=== PATIENT | female | born 1970 | race Caucasian/White ===

== ENCOUNTER 2021-07-01 15:19 | Outpatient (CLI) | payer BC, SELFPAY ==
--- NOTE | ~2021-07-01 | MM_ITS ---
EXAMINATION: MM screening angelica BI w cassie HISTORY: Screening mammogram TECHNIQUE: Craniocaudal and mediolateral oblique 3-D tomosynthesis images were obtained and synthetic 2-D images were generated. CAD analysis was submitted and interpreted. COMPARISON: 02/24/2019 BREAST PARENCHYMAL COMPOSITION: There are scattered areas of fibroglandular density. FINDINGS: There is no evidence of suspicious mass, calcification, or architectural distortion to sugg est malignancy in either breast. There has been no suspicious interval change. IMPRESSION: 1. No mammographic evidence of malignancy. 2. Recommend routine screening mammography in one year. BI-RADS Category 1: Negative Reviewed, dictated and finalized at location A. 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
== END 2021-07-01 15:20 | disposition home or self-care (01) ==
LOC: ANHIMG 15:21
PROVIDERS: PCP Family Medicine Adolescent Medicine; Visit Provider Nurse Practitioner
DX: Z12.31 Encounter for screening mammogram for malignant neoplasm of breast (principal)
CPT/HCPCS: 77063; 77067

== ENCOUNTER 2023-11-13 07:14 | Outpatient (CLI) | payer BC, SELFPAY ==
--- NOTE | ~2023-11-13 | DEXA_ITS ---
? Bone Density Report? Name:? GUS KERNS Patient ID:??? [id number] Age:? 53 Sex:? Female Ethnicity:? White Date of : 1970 Indication: postmenopausal; screening for osteoporosis; height loss; Referring Provider: Zita*Arabella Britt Study: Bone densitometry was performed. Exam Date: November 13, 2023 Accession number: [id number] Bone Density: Region? BMD??? T-score? Z-score?? Classification AP Spine(L2, L3, L4)? 1.641??? 5.1?6.0? Normal Femoral Neck (Left)? 1.040??? 1.7? 2.6? Normal Total Hip (Left)? 1.202??? 2.1? 2.7? Normal Femoral Neck (Right)? 0.992??? 1.3? 2.1? Normal Total Hip (Right)? 1.180??? 2.0? 2.5? Normal Femoral Neck Mean? 1.016??? 1.5? 2.4? Normal Total Hip Mean? 1.191??? 2.0? 2.6? Normal World Health Organization criteria for BMD impression classify patients as: Normal (T-score at or above -1.0), Osteopenia (T-score between -1.0 and -2.5), or Osteoporosis (T-score at or below -2.5). 10-year Fracture Risk: FRAX not reported because: ? All T-scores for Spine Total, Hip Total, Femoral Neck at or above -1.0 Clinical Information Provided by Patient: Has used the following medications: Vitamin D Patient maximum height was 67 Menopause Age: 53 No regular weight bearing exercise Drinks caffeinated beverages Onset of menses at age 17 Number of children 2 Impression: The patient has normal bone mass. Discussion: LOW RISK OF FRACTURE; BONE DENSITY IS WELL ABOVE THE MINIMUM DESIRABLE LEVEL AND ABOVE AVERAGE FOR AGE AND SEX AT ALL SKELETAL SITES TESTED. This person's bone density is above expected limits for age and sex. This is rarely clinically significant, but should be pursued if there are significant musculoskeletal complaints. The patient should follow a healthful lifestyle (good nutrition with adequate calcium and vitamin D, and appropriate weight- bearing exercise). Follow-Up: Consider repeating this study in 5 years or sooner if there is some new clinical indication. Reported by: Dr. Scottie Agee on 11/13/2023 11:55:00 AM. VALDEZ
--- NOTE | ~2023-11-13 | MM_ITS ---
EXAMINATION: MM screening angelica BI w cassie HISTORY: Screening TECHNIQUE: Craniocaudal and mediolateral oblique 3-D tomosynthesis images were obtained and synthetic 2-D images were generated. CAD analysis was submitted and interpreted. COMPARISON: 07/01/2021 BREAST PARENCHYMAL COMPOSITION: Not dense: There are scattered areas of fibroglandular density. FINDINGS: There is no evidence of suspicious mass, calcification, or architectural distortion to sugg est malignancy in either breast. There has been no suspicious interval change. IMPRESSION: 1. No mammographic evidence of malignancy. 2. Recommend routine screening mammography in one year. BI-RADS Category 1: Negative Reviewed, dictated and finalized at location A.
== END 2023-11-13 07:15 | disposition home or self-care (01) ==
LOC: CHSIMG 07:19
PROVIDERS: PCP Family Medicine Adolescent Medicine; Visit Provider Nurse Practitioner
DX: Z12.31 Encounter for screening mammogram for malignant neoplasm of breast (principal); Z78.0 Asymptomatic menopausal state
CPT/HCPCS: 77063; 77067; 77080

== ENCOUNTER 2025-08-01 07:14 | Outpatient (CLI) | payer BC, SELFPAY ==
--- NOTE | ~2025-08-01 | MM_ITS ---
EXAMINATION: MM screening angelica BI w cassie HISTORY: Screening. TECHNIQUE: Craniocaudal and mediolateral oblique 3-D tomosynthesis images were obtained and synthetic 2-D images were generated. CAD analysis was submitted and interpreted. COMPARISON: 2023, 2020, and 2018 BREAST PARENCHYMAL COMPOSITION: Not Dense: There are scattered areas of fibroglandular tissue FINDINGS: No suspicious masses are seen. There are some calcifications in the posterior 2-3 o'clock left breast, which are indeterminate on the screening views. No unexplained architectural distortion is seen. There are no skin or nipple abnormalities identified. There is no adenopathy seen on the images submitted. IMPRESSION: Calcifications in the posterior 2-3:00 position are noted. Additional imaging is recommended. BI-RADS 0 - Incomplete - needs additional imaging evaluation Reviewed, dictated and finalized at location C. 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 Additional imaging i s recommended. BI-RADS 0 - Incomplete - needs additional imaging evaluation
--- OUTSIDE RECORDS SUMMARY | 2025-08-01 07:19 | XMS_ITS | Clinical Summary ---
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 Name Role Phone Unavailable Primary Care Provider Unavailabl e Social History Tobacco Use Types Packs/Day Years Used Date Smoking Tobacco: Never Assessed Comments Unknown Sex and Gender Information Value Date Recorded Sex Assigned at Not on file Legal Sex Female 5:41 PM CDT Gender Identity Not on file Sexual Orientation Not on file Plan of Treatment Health Maintenance Due Date Last Done Comments Cervical Cancer Screening Pa p Smear (Age 30 to 64) Every 3 Years 1970 Colorectal Cancer Screening Colonoscopy (10 Years) 1970 Annual Physical 01/09/1975 Hepatitis C 01/09/1990 DTaP, Tdap and Td Vaccines ( 1 - Tdap) 01/09/1991 Hepatitis B Vaccines (1 of 3 - 19+ 3-dose series) 01/09/1991 Cervical Cancer Screening Pa p with HPV Testing (Age 30 to 64) Every 5 Years 01/09/2002 Cervical Cancer Screening with HPV 01/09/2002 Mammogram Screening 2012 Pneumococcal Vaccine: 50+ Ye ars (1 of 1 - PCV) 01/09/2022 Zoster Vaccines (1 of 2) 01/09/2022 COVID-19 Vaccine ( - 2024-2 6 season) 2025 Influenza Adult (#1) 2025 Hepatitis A Vaccines Aged Out No long er eligible based on patient's age to complete this topic Meningococcal B Vaccine Aged Out No l onger eligible based on patient's age to complete this topic Meningococcal Vaccine Aged Out No genesis corey eligible based on patient's age to complete this topic RSV Immunizations Under 20 Months Aged Out No longer eligible based on patient's age to complete this topic
== END 2025-08-01 07:15 | disposition home or self-care (01) ==
PROVIDERS: PCP Nurse Practitioner Family; Visit Provider Family Medicine Adolescent Medicine
DX: Z12.31 Encounter for screening mammogram for malignant neoplasm of breast (principal); R92.8 Other abnormal and inconclusive findings on diagnostic imaging of breast
CPT/HCPCS: 77063; 77067